=== PATIENT | female | born 1955 | race Caucasian/White ===

== ENCOUNTER 2017-05-24 09:46 | Outpatient (CLI) | payer BC | END 2017-05-24 18:58 | disposition home or self-care (01) | LOC: SMA 09:46 | PROVIDERS: ATTEND Specialist | DX: Z12.31 Encounter for screening mammogram for malignant neoplasm of breast (principal) | CPT/HCPCS: 77067 ==

== ENCOUNTER 2022-01-11 09:04 | Outpatient (CLI) | payer OTHER | END 2022-01-11 19:51 | disposition home or self-care (01) | LOC: SMA 09:04 | PROVIDERS: ATTEND Family Medicine | DX: N64.89 Other specified disorders of breast (principal) | CPT/HCPCS: 76642; 77065 ==

== ENCOUNTER 2022-07-07 11:07 | Outpatient (CLI) | payer OTHER | END 2022-07-07 19:37 | disposition home or self-care (01) | LOC: SMA 11:07 | PROVIDERS: ATTEND Family Medicine | DX: Z12.39 Encounter for other screening for malignant neoplasm of breast (principal); Z12.31 Encounter for screening mammogram for malignant neoplasm of breast; N64.89 Other specified disorders of breast | CPT/HCPCS: 76642; 77067 ==

== ENCOUNTER 2023-07-13 10:13 | Outpatient (CLI) | payer OTHER | END 2023-07-13 17:00 | disposition home or self-care (01) | LOC: SMA 10:13 | PROVIDERS: ATTEND Specialist | DX: Z12.31 Encounter for screening mammogram for malignant neoplasm of breast (principal); N64.89 Other specified disorders of breast; R92.333 Mammographic heterogeneous density, bilateral breasts; R92.1 Mammographic calcification found on diagnostic imaging of breast | CPT/HCPCS: 76642; 77067 ==